=== PATIENT | female | born 1995 ===

== ENCOUNTER → 2024-08-28 10:39 | Outpatient (CLI) | payer OTHER | END | disposition home or self-care (01) | LOC: PRENATAL 10:39 | PROVIDERS: ATTEND Obstetrics & Gynecology Maternal & Fetal Medicine | DX: O36.80X0 Pregnancy with inconclusive fetal viability, not applicable or unspecified (principal); Z36.82 Encounter for antenatal screening for nuchal translucency; Z3A.12 12 weeks gestation of pregnancy ==

== ENCOUNTER 2024-10-24 12:39 | Outpatient (CLI) | payer OTHER | END 2024-10-24 12:41 | disposition home or self-care (01) | LOC: PRENATAL 12:39 | PROVIDERS: ATTEND Obstetrics & Gynecology Maternal & Fetal Medicine | DX: O44.00 Complete placenta previa NOS or without hemorrhage, unspecified trimester (principal); Z3A.21 21 weeks gestation of pregnancy ==

== ENCOUNTER 2025-01-16 10:29 | Outpatient (CLI) | payer OTHER | END 2025-01-16 10:30 | disposition home or self-care (01) | LOC: PRENATAL 10:29 | PROVIDERS: ATTEND Obstetrics & Gynecology Maternal & Fetal Medicine | DX: O26.849 Uterine size-date discrepancy, unspecified trimester (principal); O36.8130 Decreased fetal movements, third trimester, not applicable or unspecified; Z3A.33 33 weeks gestation of pregnancy ==

== ENCOUNTER 2025-02-24 12:35 | Inpatient (IN) | payer OTHER ==
[~2025-02-24] VITALS: Ht 157.5 cm; Wt 3.2 kg
[2025-02-24 13:45] LABS: BASO % 0.2 % (0.1-1.2); EOS # 0.04 (0.04-0.54); EOS % 0.5 % (0.7-7.0); LYMPH # 1.36 (1.18-3.74); LYMPH % 16.5 % (19.3-53.1); MEAN PLATELET VOLUME 10.10 fl (9.4-12.4); MONO # 0.51 (0.24-0.82); MONO % 6.2 % (4.7-12.5); NEUT # 6.25 (1.56-6.13); NEUT % 76.1 % (34.0-71.1); RED CELL DISTRIBUTION WIDTH 11.7 % (11.6-14.4)
[2025-02-24 14:09] LABS: INR 0.94
[2025-02-24 14:22] LABS: URINE APPEARANCE Cloudy; URINE BILIRRUBIN Negative (NEGATIVE); URINE BLOOD Negative; URINE COLOR Yellow; URINE GLUCOSE Negative (NEGATIVE); URINE KETONE 15 (NEGATIVE); URINE LEUKOCYTE Trace; URINE NITRATE Negative; URINE UROBILINOGEN 1.0 E.U./dl
[2025-02-24 14:25] LABS: URINE BACTERIA 1347.5 uL (0.0-1933); URINE EPITHELIAL CELLS 118.9 uL (0.0-38.8); URINE RBC 3.8 uL (0.0-20.8); URINE WBC 49.0 uL (0.0-23.2)
[2025-02-24 14:44] LABS: TYPE CELLS SQUAMOUS; URINE CAST 0.29 uL (0.0-1.40); URINE PROTEIN 100 (NEGATIVE)
[2025-03-03 01:58] VITALS: BP 126/84
[2025-03-03] MEDS ORDERED: [UNRECOGNIZED DRUG - OTHER] PO (02:40)
[2025-03-03] MEDS ORDERED: CEFAZOLIN SODIUM 1,000 MG VIAL IV SCH (02:45)
[2025-03-03] MEDS ORDERED: RINGERS SOLUTION,LACTATED 1,000 ML IV SCH (02:45)
[2025-03-03 03:16] LABS: URINE APPEARANCE Clear; URINE BILIRRUBIN Negative (NEGATIVE); URINE BLOOD NHT; URINE COLOR Yellow; URINE GLUCOSE Negative (NEGATIVE); URINE KETONE Negative (NEGATIVE); URINE LEUKOCYTE Trace; URINE NITRATE Negative; URINE PROTEIN Trace (NEGATIVE); URINE UROBILINOGEN 1.0 E.U./dl
[2025-03-03 03:19] LABS: BASO % 0.1 % (0.1-1.2); EOS # 0.06 (0.04-0.54); EOS % 0.7 % (0.7-7.0); LYMPH # 2.07 (1.18-3.74); LYMPH % 25.0 % (19.3-53.1); MEAN PLATELET VOLUME 10.80 fl (9.4-12.4); MONO # 0.75 (0.24-0.82); MONO % 9.0 % (4.7-12.5); NEUT # 5.38 (1.56-6.13); NEUT % 65.0 % (34.0-71.1); RED CELL DISTRIBUTION WIDTH 11.9 % (11.6-14.4)
[2025-03-03 03:20] LABS: URINE BACTERIA 2528.3 uL (0.0-1933); URINE EPITHELIAL CELLS 43.5 uL (0.0-38.8); URINE RBC 3.9 uL (0.0-20.8); URINE WBC 39.8 uL (0.0-23.2)
[2025-03-03 03:34] LABS: INR < 0.93
[2025-03-03 03:40] LABS: URINE CAST 0.14 uL (0.0-1.40)
[2025-03-03 06:14] VITALS: BP 123/86; O2SAT 100
[2025-03-03 11:29] VITALS: BP 102/73
[2025-03-03] MEDS ORDERED: ERYTHROMYCIN BASE OPHT 1GM EACH TUBE OP ONE (15:45)
[2025-03-03] MEDS ORDERED: OXYTOCIN 10 UNITS/ML VIAL IV ONE (15:45)
[2025-03-03] MEDS ORDERED: MORPHINE SULFATE 4 MG/ML CARTRIDGE IV SCH (17:00)
[2025-03-03 19:20] VITALS: BP 136/80
[2025-03-03 21:03] LABS: BASO % 0.2 % (0.1-1.2); EOS # 0.00 (0.04-0.54); EOS % 0.0 % (0.7-7.0); LYMPH # 1.48 (1.18-3.74); LYMPH % 10.0 % (19.3-53.1); MEAN PLATELET VOLUME 10.40 fl (9.4-12.4); MONO # 1.17 (0.24-0.82); MONO % 7.9 % (4.7-12.5); NEUT # 12.15 (1.56-6.13); NEUT % 81.6 % (34.0-71.1); RED CELL DISTRIBUTION WIDTH 11.9 % (11.6-14.4)
[2025-03-03] MEDS ORDERED: KETOROLAC TROMETHAMINE 60 MG VIAL IM NR (22:00)
[2025-03-04] VITALS: BP 122/81
[2025-03-04 05:00] VITALS: BP 140/80
[2025-03-04] MEDS ORDERED: OxyCODONE HCL 5 MG TABLET (ROXICODONE) PO SCH (05:00)
[2025-03-04] MEDS ORDERED: PNV,CALCIUM 72/IRON/FOLIC ACID 1 TAB TABLET PO SCH (08:00)
[2025-03-04] MEDS ORDERED: SIMETHICONE 125 MG CAPSULE PO SCH (08:00)
[2025-03-04 08:49] VITALS: BP 132/79
[2025-03-04] MEDS ORDERED: DOCUSATE SODIUM 100MG CAP PO SCH (09:00)
[2025-03-04 16:12] VITALS: BP 123/85
[2025-03-05 00:58] VITALS: BP 101/68
[2025-03-05 09:32] VITALS: BP 119/80
[2025-03-05] MEDS ORDERED: BISACODYL 10 MG/SUPP.RECT SUPP.RECT RECTAL NR (10:30)
[2025-03-05 19:17] VITALS: BP 119/79
[2025-03-06 00:14] VITALS: BP 107/75
[2025-03-06 08:00] VITALS: BP 125/83
== END 2025-03-06 12:39 | disposition home or self-care (01) | DRG 788 ==
LOC: OB/GYN 03-03 02:33 → O/R 03-03 02:33 → LDR 03-03 02:33 → O/R 03-03 14:13 → OB/GYN 03-03 15:16
PROVIDERS: ADMIT Obstetrics & Gynecology; ATTEND Obstetrics & Gynecology
PROC: 4A1HXCZ Monitoring of Products of Conception, Cardiac Rate, External Approach (ICD-10-PCS; 2025-03-03)
PROC: 10D00Z1 Extraction of Products of Conception, Low, Open Approach (ICD-10-PCS; principal; 2025-03-03 14:15)
DX: O34.211 Maternal care for low transverse scar from previous cesarean delivery (principal); Z3A.39 39 weeks gestation of pregnancy; Z37.0 Single live birth